=== PATIENT | male | born 1975 | race Caucasian/White ===

== ENCOUNTER 2020-12-01 13:41 | Inpatient (IN) ==
[2020-12-01] MEDS ORDERED: Lactated Ringers 1000 ml BAG 1,000 ML IV ONE (14:14)
[2020-12-01 14:52] LABS: ABS Lymphocytes 0.5 10^3/ul (1.0-4.8); ABS Monocytes 0.2 10^3/ul (0-0.8); ABS Neutrophils 4.5 10^3/ul (1.5-7.7); Eosinophil % 0.2 %; Hematocrit 38 % (42-52); Hemoglobin 13.6 g/dL (14.0-18.0); Lymphocyte % 8.7 %; Mean Corpuscular HGB Conc 36 g/dL (31-36); Mean Corpuscular Hemoglobin 35 pg (27-31); Mean Corpuscular Volume 97 fL (80-94); Mean Platelet Volume 7.1 fL (7.4-10.4); Platelet Count 174 10^3/uL (150-450); Red Cell Distribution Width 12 % (10-15); White Blood Count 5.2 10^3/uL (3.5-10.8)
[2020-12-01] MEDS ORDERED: LORazepam 2 mg VIAL 1 ml IV PUSH ONE (14:57)
[2020-12-01] MEDS ORDERED: Lorazepam PYXIS KEY PRN (14:57)
[2020-12-01 15:02] LABS: ALT 43 U/L (7-52); AST 131 U/L (13-39); Albumin 4.2 g/dL (3.2-5.2); Albumin/Globulin Ratio 1.1 (1-3); Alkaline Phosphatase 127 U/L (35-149); Anion Gap 11 mmol/L (2-11); Blood Urea Nitrogen 11 mg/dL (6-24); CO2 Carbon Dioxide 25 mmol/L (22-32); Calcium 9.4 mg/dL (8.6-10.3); Chloride 97 mmol/L (101-111); Creatine Kinase 166 U/L (10-223); Globulin 3.8 g/dL (2-4); Glucose 109 mg/dL (70-100); Potassium 3.9 mmol/L (3.5-5.0); Sodium 133 mmol/L (135-145)
[2020-12-01 15:03] LABS: Troponin I 0.01 ng/mL (<0.03)
[2020-12-01 15:13] LABS: INR 0.94 (0.86-1.15)
[2020-12-01 16:13] LABS: Alcohol, S < 13 mg/dL (<13)
[2020-12-01] MEDS ORDERED: Ondansetron 4 mg VIAL 2 MG/ML 2 ml VIAL IV PRN (17:14)
[2020-12-01] MEDS ORDERED: Thiamine 100 MG/ML 2 ml VIAL (200 mg) IM ONE (17:17)
[2020-12-01] MEDS ORDERED: Nicotine GUM 4MG FRUIT FLAVOR PO PRN (17:40)
[2020-12-01 18:53] LABS: Rapid COVID-19 Molecular Undetected (Undetected)
[2020-12-01 19:36] LABS: % Iron Saturation 35 % (15-55); Iron 123 ug/dL (50-212); Total Iron Binding Capacity 353 mcg/dL (250-450); Transferrin 252 mg/dL (203-362); Unsaturated Iron Binding < 338 ug/dL
[2020-12-01 21:24] LABS: Folate 9.25 ng/mL (5.90-24.80)
[2020-12-01 21:25] LABS: Vitamin B12 251 pg/mL (180-914)
[2020-12-02 04:49] LABS: ABS Eosinophils 0.1 10^3/ul (0-0.6); ABS Lymphocytes 0.9 10^3/ul (1.0-4.8); ABS Monocytes 0.4 10^3/ul (0-0.8); ABS Neutrophils 3.7 10^3/ul (1.5-7.7); Eosinophil % 1.2 %; Hematocrit 37 % (42-52); Hemoglobin 13.2 g/dL (14.0-18.0); Lymphocyte % 17.6 %; Mean Corpuscular HGB Conc 36 g/dL (31-36); Mean Corpuscular Hemoglobin 35 pg (27-31); Mean Corpuscular Volume 98 fL (80-94); Mean Platelet Volume 7.2 fL (7.4-10.4); Platelet Count 148 10^3/uL (150-450); Red Blood Count 3.78 10^6 /uL (4.18-5.48); Red Cell Distribution Width 13 % (10-15)
[2020-12-02] MEDS ORDERED: Nicotine PATCH 14 MG/24 HR PATCH TRANSDERM SCH (09:00)
[2020-12-02] MEDS ORDERED: Multivitamins/Minerals TAB PO SCH (09:00)
[2020-12-02 10:44] LABS: Albumin 3.9 g/dL (3.2-5.2); Albumin/Globulin Ratio 1.2 (1-3); Calcium 9.3 mg/dL (8.6-10.3); Globulin 3.3 g/dL (2-4); Potassium 3.8 mmol/L (3.5-5.0); Total Bilirubin 0.6 mg/dL (0.2-1.0); Total Protein 7.2 g/dL (6.4-8.9)
[2020-12-02 13:23] VITALS: BP 158/103
== END 2020-12-02 14:30 | disposition left against medical advice (07) | DRG 770 ==
LOC: ED 13:41 → MEDTELE 17:08 → SUATTDRO 17:08 → MEDTELE 19:47
PROVIDERS: ADMIT Internal Medicine; ATTEND Internal Medicine